=== PATIENT | female | born 1970 | race Caucasian/White ===

== ENCOUNTER → 2017-03-18 | Outpatient (CLI) | payer BC ==
[~2017-03-18] MED LIST: GADOBUTROL 10 MMOL/10 ML VIAL ONE
== END | disposition home or self-care (01) ==
LOC: RAD 15:06
PROVIDERS: ATTEND Psychiatry & Neurology Neurology
DX: G93.89 Other specified disorders of brain (principal); M89.8X8 Other specified disorders of bone, other site
CPT/HCPCS: 70546; 70553; A9585

== ENCOUNTER 2017-03-20 11:35 | Day surgery (SDC) | payer BC ==
[~2017-03-20] VITALS: Ht 160 cm; Wt 62.4 kg
[2017-03-20 12:25] VITALS: BP 138/84
[2017-03-20] MEDS ORDERED: SODIUM CHLORIDE 0.9% 1,000 ML IV SCH (12:30)
[2017-03-20] MEDS ORDERED: SODIUM CHLORIDE 0.9% 500 ML IV SCH (13:00)
== END 2017-03-20 17:15 ==
LOC: OUT 11:35
PROVIDERS: ATTEND Psychiatry & Neurology Neurology
DX: R51 Headache (principal)
CPT/HCPCS: 62270; 82945; 84157; 89051; J7040